=== PATIENT | female | born 1995 | race Caucasian/White ===

== ENCOUNTER 2017-04-28 16:49 | Emergency (ER) | payer OTHER ==
[~2017-04-28] VITALS: Ht 162.6 cm; Wt 78.0 kg
[~2017-04-28 16:49] MED LIST: ACET1TAB40 PO; FAMO-96 PO; HYDR-3498 PO; INSU100I28 SQ; INSU100V18; LORA-408 PO; ONDA4TAB8 PO; TRAM50TA2 PO
[2017-04-28 16:51] VITALS: Ht 162.6 cm; Wt 78.0 kg
[2017-04-28 19:31] LABS: ADD UMIC YES; UR ASCORBIC ACID NEGATIVE (NEGATIVE); UR BILIRUBIN (Dip) NEGATIVE (NEGATIVE); UR BLOOD (Dip) 3+ mg/dL (NEGATIVE); UR CLARITY SLIGHTLY CLOUDY (CLEAR); UR COLOR YELLOW (YELLOW); UR GLUCOSE (Dip) 3+ mg/dL (NEGATIVE); UR KETONES (Dip) TRACE mg/dL (NEGATIVE); UR LEUKOCYTE ESTERASE (Dip) NEGATIVE Leu/ul (NEGATIVE); UR NITRITE (Dip) NEGATIVE (NEGATIVE); UR RBC > 182 /HPF (0-5); UR SPECIFIC GRAVITY (Dip) 1.022 (1.003-1.030); UR TOTAL PROTEIN (Dip) NEGATIVE (NEGATIVE); UR UROBILINOGEN (Dip) NEGATIVE (NEGATIVE)
[2017-04-28 20:18] LABS: BASOPHILS % 0.3 % (0.0-2.0); EOSINOPHILS # 0.1 10^3/ul (0.0-0.5); HEMATOCRIT 32.1 % (37.0-47.0); HEMOGLOBIN 10.3 g/dl (12.0-16.0); LYMPHOCYTES % 25.5 % (15.0-51.0); MEAN CORPUSCULAR HEMOGLOBIN 27.1 pg (29.0-33.0); MEAN CORPUSCULAR HGB CONC 32.1 g/dl (32.0-37.0); MEAN CORPUSCULAR VOLUME 84.5 fl (82.0-101.0); MEAN PLATELET VOLUME 10.8 fl (7.4-10.4); MONOCYTE # 0.4 10^3/ul (0.3-0.9); MONOCYTES % 3.1 % (0.0-11.0); NEUTROPHIL # 8.1 10^3/ul (1.6-7.5); NEUTROPHILS % 69.6 % (39.0-77.0); PLATELET COUNT 312 10^3/UL (140-415); RED CELL DISTRIBUTION WIDTH 14.3 % (11.5-14.5); WHITE BLOOD COUNT 11.7 10^3/ul (4.8-10.8)
--- NOTE | 2017-04-28 20:18 | RADRPT ---
PROCEDURE: US Pelvis. CLINICAL INDICATION: Pelvic pain TECHNIQUE: Multiple sonographic images of the pelvis were obtained utilizing a transabdominal and endovaginal technique. The images were reviewed on a PACS workstation. COMPARISON: None. FINDINGS: The uterus is visualized and measures 3.7 x 3.9 x 6.2 cm. The endometrial echo complex is slightly t hickened and measures 15.2 mm . There is a trace amount of fluid within the inferior endometrial can al. The right ovary measures 1.3 x 1.5 x 2.1 cm The left ovary measures 1.2 x 1.3 x 2.3 cm. There is normal vascular flow to both ovaries. There is a small amount of free fluid in the right adnexa. IMPRESSION: 1. The endometrial echo complex is slightly thickened measuring 15.2 mm. There is a trace amount o f fluid within the inferior endometrial canal. 2. Both ovaries are normal in appearance with normal vascular flow. 3. There is a small amount of free fluid in the right adnexa. RPTAT:AAJJ Physician Dixon Date Time Electronically viewed and signed by Physician Dixon on 04/28/2017 20:17 /
[2017-04-28 20:21] LABS: ALBUMIN 4.2 g/dl (3.3-4.9); ALBUMIN/GLOBULIN RATIO 1.31; BILIRUBIN,INDIRECT 0.1 mg/dl (0-1.1); BILIRUBIN,TOTAL 0.1 mg/dl (0.2-1.3); CALCIUM 8.9 mg/dl (8.4-10.2); CREATININE 0.84 mg/dl (0.44-1.00); POTASSIUM 5.2 mmol/L (3.5-5.1); TOTAL PROTEIN 7.4 g/dl (6.1-8.1)
[2017-04-28] MEDS ORDERED: IBUPROFEN 600 MG TAB PO STA (20:37)
[2017-04-28] MEDS ORDERED: SOD CHLORIDE 0.9% 1,000 ML IV STA ×2 (20:38→20:39)
[2017-04-28] MEDS ORDERED: KETOROLAC 15 MG INJ IV STA (20:39)
[2017-04-28] MEDS ORDERED: morphine 10 MG INJ IV ONE (21:00)
--- NOTE | 2017-04-29 01:03 | ERD ---
ER Documentation Chief Complaint Date/Time DATE: 04/29/17 TIME: 00:53 Chief Complaint vaginal bleeding x 2 mos HPI 22-year-old female with a history of bipolar disorder, insulin-dependent diabetes type 1 who comes from a [facility] presents to the emergency department complaining of vaginal bleeding for the past 2 months. Patient states that she uses 6 pads per day. Patient has a history of irregular menstrual periods. She denies any pelvic pain. She denies any nausea, vomiting , diarrhea. Patient is a poor historian and uncooperative with answering questions, patient states that she took insulin at home and is due for her next insulin shot ROS All systems reviewed and are negative except as per history of present illness. Medications Home Meds Active Scripts Tramadol HCl (Tramadol HCl) 50 Mg Tablet, 50 MG PO Q4 Y for PAIN, #20 TAB Prov:DINO SIEGEL NP 06/07/16 Ondansetron Hcl* (Zofran*) 4 Mg Tablet, 4 MG PO Q6H for NAUSEA AND/OR VOMITING, #30 TAB Prov:DINO SIEGEL NP 06/07/16 Famotidine* (Pepcid*) 20 Mg Tablet, 20 MG PO BID for 30 Days, TAB Prov:VIVIAN FONTANA PA-C 01/05/16 Hydrocodone Bit-Acetaminophen* ([place]*) 5-325 Mg Tab, 1 TAB PO Q6 Y for PAIN, # 10 TAB Prov:VIVIAN FONTANA PA-C 01/05/16 Acetaminophen-Codeine* (Acetaminophen-Cod #3*) 300-30 Mg Tab, 2 TAB PO Q4H Y for PAIN, #15 TAB Prov:RNIKU BRITO NP 10/10/15 Reported Medications Insulin Lispro (Humalog) 100 U/Ml Vial, 0 Refills 06/13/12 Insulin Detemir* (Levemir*) 100 U/Ml Insuln.pen, 48 UNIT SQ AM/PM 06/13/12 Lorazepam (Ativan) 1 Mg Tablet, 1 MG PO QID Y, 0 Refills 06/12/12 Allergies Allergies: Coded Allergies: Penicillins (Verified Allergy, Severe, 10/10/15) Insulin Glargine,Hum.Rec.Anlog (Verified Allergy, Unknown, 10/10/15) amoxicillin (Verified Allergy, Unknown, 10/10/15) fish derived (Verified Allergy, Unknown, 10/10/15) mirtazapine (Verified Allergy, Unknown, 10/10/15) Uncoded Allergies: FISH (Allergy, Unknown, 12/25/13) PMhx/Soc History of Surgery: Yes (ovarian cyst) Anesthesia Reaction: No Hx Neurological Disorder: No Hx Respiratory Disorders: No Hx Cardiac Disorders: No Hx Psychiatric Problems: No Hx Miscellaneous Medical Probl: Yes (fibro myalgia, [employer]SULTANT SHUNT.) Hx Alcohol Use: No Hx Substance Use: No Hx Tobacco Use: No Smoking Status: Never smoker Physical Exam Vitals Vital Signs Date Time Temp Pulse Resp B/P Pulse Ox O2 Delivery O2 Flow Rate FiO2 04/28/17 16:51 99.0 100 20 108/60 99 Physical Exam Const: obese Head: Atraumatic Eyes: Normal Conjunctiva ENT: Normal External Ears, Nose and Mouth. Neck: Full range of motion..~ No meningismus. Resp: Clear to auscultation bilaterally Cardio: Regular rate and rhythm, no murmurs Abd: Soft, non tender, non distended. Normal bowel sounds Skin: No petechiae or rashes Back: No midline or flank tenderness Ext: No cyanosis, or edema Neur: Awake and alert Psych: flat affect Result Diagram: 04/28/17195404/28/171954 Results 24 hrs Laboratory Tests Test 04/28/17 19:00 04/28/17 19:55 Urine Color YELLOW Urine Clarity SLIGHTLY CLOUDY Urine pH 7.0 Urine Specific [place] 1.022 Urine Ketones TRACEmg/dL Urine Nitrite NEGATIVEmg/dL Urine Bilirubin NEGATIVEmg/dL Urine Urobilinogen NEGATIVEmg/dL Urine Leukocyte Esterase NEGATIVELeu/ul Urine Microscopic RBC > 182/HPF Urine Microscopic WBC 0/HPF Urine Hemoglobin 3+mg/dL Urine Glucose 3+mg/dL Urine Total Protein NEGATIVEmg/dl White Blood Count 11.710^3/ul Red Blood Count 3.8010^6/ul Hemoglobin 10.3g/dl Hematocrit 32.1% Mean Corpuscular Volume 84.5fl Mean Corpuscular Hemoglobin 27.1pg Mean Corpuscular Hemoglobin Concent 32.1g/dl Red Cell Distribution Width 14.3% Platelet Count 11634^3/UL Mean Platelet Volume 10.8fl Neutrophils % 69.6% Lymphocytes % 25.5% Monocytes % 3.1% Eosinophils % 1.0% Basophils % 0.3% Nucleated Red Blood Cells % 0.0/100WBC Neutrophils # 8.110^3/ul Lymphocytes # 3.010^3/ul Monocytes # 0.410^3/ul Eosinophils # 0.110^3/ul Basophils # 0.010^3/ul Nucleated Red Blood Cells # 0.010^3/ul Sodium Level 138mmol/L Potassium Level 5.2mmol/L Chloride Level 101mmol/L Carbon Dioxide Level 21mmol/L Anion Gap 21 Blood Urea Nitrogen 11mg/dl Creatinine 0.84mg/dl Glucose Level 537mg/dl Calcium Level 8.9mg/dl Total Bilirubin 0.1mg/dl Direct Bilirubin 0.00mg/dl Indirect Bilirubin 0.1mg/dl Aspartate Amino Transf (AST/SGOT) 12IU/L Alanine Aminotransferase (ALT/SGPT) 27IU/L Alkaline Phosphatase 144IU/L Total Protein 7.4g/dl Albumin 4.2g/dl Globulin 3.20g/dl Albumin/Globulin Ratio 1.31 Current Medications Medications (Trade) Dose Ordered Sig/[place] Route PRN Reason Start Time Stop Time Status Last Admin Dose Admin Ibuprofen 600 mg 600 mg ONCE STAT PO 04/28/17 20:37 04/28/17 20:40 DC Sodium Chloride (NS) 1,000 ml @ 1,000 mls/hr Q1H STAT IV 04/28/17 20:38 04/28/17 21:19 DC 04/28/17 20:49 Ketorolac Tromethamine 15 mg 15 mg ONCE STAT IV 04/28/17 20:39 04/28/17 20:40 DC 04/28/17 20:51 Sodium Chloride (NS) 1,000 ml @ 1,000 mls/hr Q1H STAT IV 04/28/17 20:39 04/28/17 21:19 DC Morphine Sulfate (morphine) 6 mg ONCE ONCE IV 04/28/17 21:00 04/28/17 21:01 DC Procedures/MDM 21-year-old female with history of insulin-dependent diabetes, bipolar disorder , and irregular menses presents complaining of vaginal bleeding for the past 2 months. Patient did have evidence of anemia however not significant enough to get transfused. hemoglobin of 10.3, pelvic ultrasound unremarkable. Patient was found to have hyperglycemia of 537 without evidence of DKA or hyperosmolar state, Patient was in the process of receiving fluids and insulin however patient was very unpleasant to staff requesting pain medication, I have given her morphine but patient states she wants to go home. I have discussed the risks of and complications of hyperglycemia however patient still signed AGAINST MEDICAL ADVICE Pelvic ultrasound 1. The endometrial echo complex is slightly thickened measuring 15.2 mm. There is a trace amount of fluid within the inferior endometrial canal. 2. Both ovaries are normal in appearance with normal vascular flow. 3. There is a small amount of free fluid in the right adnexa. Departure Diagnosis: Primary Impression: Left against medical advice Condition: LISET Guadalupe PA-C Apr 29, 2017 01:03
== END 2017-04-28 21:00 | disposition left against medical advice (07) ==
LOC: FTE 16:49
DX: N93.9 Abnormal uterine and vaginal bleeding, unspecified (principal); E10.9 Type 1 diabetes mellitus without complications; Z79.4 Long term (current) use of insulin
CPT/HCPCS: 76830; 76856; 80053; 81001; 85025; 86850; 86900; 86901; 96374; J1885; J7030; Z7502

== ENCOUNTER 2018-05-20 02:35 | Emergency (ER) | END 2018-05-20 11:07 | disposition home or self-care (01) ==

== ENCOUNTER 2018-09-26 11:05 | Emergency (ER) | payer OTHER ==
[2017-04-28 16:51] VITALS: BMI 29.5
[~2018-09-26 11:05] MED LIST changes: +INSU100I33 SC; +PEG1POWD PO; +POLY17PO6 PO
[2018-09-26] MEDS ORDERED: HYDROCODONE/APAP (10/325) TAB PO ONE (11:30)
[2018-09-26 12:00] VITALS: BP 130/78; PULSE 59; RESP 17
--- NOTE | 2018-09-26 13:42 | ERD ---
ER Documentation Chief Complaint Chief Complaint Pain HPI Patient is a 23-year-old female with a history of brain cancer, diabetes, and hypertension who presents saying that she is having "so much pain". She was brought in by ambulance. She said that she might be having methadone withdrawal. The patient said that she usually takes methadone 3 times per day but that she has been out of her methadone for the past 3 weeks. She said that she cannot sleep or eat and that her blood pressure is high. She is having whole body pain. She tried Tylenol and ibuprofen and tried to call her pain management doctor but said that the doctor was not answering her calls. She does not remember the name of her pain management doctor or her primary doctor. Upon review of old medical records the patient has multiple visits to the ER for various complaints including multiple pain complaints. Upon review of the emergency department information exchange system the visit has visits to 2 separate emergency departments. ROS All systems reviewed and are negative except as per history of present illness. Medications Home Meds Active Scripts Polyethylene Glycol* (Miralax*) 17 Gm Powd.pack, 17 GM PO DAILY, #7 Prov:EMILIANA HARDY DO 05/20/18 Peg 3350/Na Sulf,Bicarb,Cl/KCl (Golytely Packet) 1 Each Powd.pack, 1 EACH PO DAILY for constipation, #4 Prov:EMILIANA HARDY DO 05/20/18 Tramadol HCl (Tramadol HCl) 50 Mg Tablet, 50 MG PO Q4 PRN for PAIN, #20 TAB Prov:DINO SIEGEL NP 06/07/16 Ondansetron Hcl* (Zofran*) 4 Mg Tablet, 4 MG PO Q6H for NAUSEA AND/OR VOMITING, #30 TAB Prov:DINO SIEGEL NP 06/07/16 Famotidine* (Pepcid*) 20 Mg Tablet, 20 MG PO BID for 30 Days, TAB Prov:VIVIAN FONTANA PA-C 01/05/16 Hydrocodone Bit-Acetaminophen* ([place]*) 5-325 Mg Tab, 1 TAB PO Q6 PRN for PAIN, #10 TAB Prov:VIVIAN FONTANA PA-C 01/05/16 Acetaminophen-Codeine* (Acetaminophen-Cod #3*) 300-30 Mg Tab, 2 TAB PO Q4H PRN for PAIN, #15 TAB Prov:RINKU BRITO ROUSTABOUT HAND 10/10/15 Reported Medications Insulin Glargine,Hum.rec.anlog (Basaglar Kwikpen U-100) 100 Unit/1 Ml Insuln.pen, 90 UNIT SC BID, EA 05/20/18 Insulin Detemir* (Levemir*) 100 U/Ml Insuln.pen, 48 UNIT SQ AM/PM 06/13/12 Lorazepam (Ativan) 1 Mg Tablet, 1 MG PO QID PRN, 0 Refills 06/12/12 Discontinued Reported Medications Insulin Lispro (Humalog) 100 U/Ml Vial, 0 Refills 06/13/12 Allergies Allergies: Coded Allergies: Penicillins (Unverified Allergy, Severe, 05/20/18) Insulin Glargine,Hum.Rec.Anlog (Unverified Allergy, Unknown, 05/20/18) amoxicillin (Unverified Allergy, Unknown, 05/20/18) fish derived (Verified Allergy, Unknown, 10/10/15) mirtazapine (Unverified Allergy, Unknown, 05/20/18) Uncoded Allergies: FISH (Allergy, Unknown, 12/25/13) PMhx/Soc History of Surgery: Yes (ovarian cyst, MULTIPLE BRAIN SX) Anesthesia Reaction: No Hx Neurological Disorder: No Hx Respiratory Disorders: No Hx Cardiac Disorders: No Hx Psychiatric Problems: No Hx Miscellaneous Medical Probl: Yes (fibro myalgia, [employer] WORK[employer] SHUNT. HX BRAIN CA, DM1, DROP FOOT) Hx Alcohol Use: No Hx Substance Use: No Hx Tobacco Use: No Smoking Status: Never smoker FmHx Family History: No diabetes Physical Exam Vitals Vital Signs Date Temp Pulse Resp B/P (MAP) Pulse Ox O2 O2 Flow FiO2 Time Delivery Rate 09/26/18 59 17 130/78 100 Room Air 12:00 (95) Physical Exam Const: Mild distress secondary to pain Head: Atraumatic Eyes: Normal Conjunctiva ENT: Normal External Ears, Nose and Mouth. Neck: Full range of motion. No meningismus. Resp: Clear to auscultation bilaterally Cardio: Regular rate and rhythm, no murmurs Abd: Soft, non tender, non distended. Normal bowel sounds Skin: No petechiae or rashes Back: No midline or flank tenderness Ext: No cyanosis, or edema Neur: Awake and alert Psych: Normal Mood and Affect Results 24 hrs Current Medications Medications Dose Sig/[place] Start Time Status Last (Trade) Ordered Route PRN Stop Time Admin Dose Reason Admin 1 tab ONCE ONCE 09/26/18 DC 09/26/18 Acetaminophen PO 11:30 09/26/18 11:23 / 11:31 Hydrocodone Bitart ([place] ()) Procedures/MDM Patient is a 23-year-old female who presents with acute on chronic pain. This appears to be an exacerbation of her chronic pain syndrome which she takes methadone for. I told her that per our policy at [facility] we will not give her IV or IM narcotics and she will not get a prescription for narcotics. She was given 1 dose of [place] in the emergency department and will be discharged. She will need to follow-up with her pain management doctor for any further pain medication. She can return for any worsening symptoms. Departure Diagnosis: Primary Impression: Chronic pain Chronic pain type: chronic pain syndrome Qualified Codes: G89.4 - Chronic pain syndrome Condition: Fair Patient Instructions: Chronic Pain Referrals: Your pain management doctor Additional Instructions: SPECIALIST: YOU HAVE A MEDICAL CONDITION WHICH REQUIRES YOU TO SEE A SPECIALIST WITHIN THE NEXT 1-2 DAYS. PLEASE FOLLOW UP WITH YOUR PRIMARY PHYSICIAN FOR REFFERAL.IF YOU DO NOT HAVE A PRIMARY CARE PHYSICIAN AND/OR YOU CAN NOT AFFORD TO SEE A PHYSICIAN THE FOLLOWING RESOURCES HAVE BEEN SUPPLIED TO YOU. IT IS YOUR RESPONSIBILITY TO BE SEEN BY THE SPECIALIST EDIN CEJA MD Sep 26, 2018 13:42
== END 2018-09-26 12:00 | disposition home or self-care (01) ==
LOC: E/R 11:05
DX: G89.4 Chronic pain syndrome (principal); E10.9 Type 1 diabetes mellitus without complications; I10 Essential (primary) hypertension; Z79.4 Long term (current) use of insulin; Z85.841 Personal history of malignant neoplasm of brain
CPT/HCPCS: Z7502; Z7610; 99283

== ENCOUNTER 2019-05-19 12:41 | Emergency (ER) | payer MEDICARE, OTHER ==
[~2019-05-19] VITALS: Ht 160 cm; Wt 80.0 kg
[~2019-05-19 12:41] MED LIST changes: -INSU100V18; +SULF1TAB31 PO
[2019-05-19 12:57] VITALS: Ht 160 cm; Wt 80.0 kg
[2019-05-19] MEDS ORDERED: LORAZEPAM 2 MG INJ IM ONE (13:00)
[2019-05-19] MEDS ORDERED: HALOPERIDOL 5 MG INJ IM ONE (13:00)
[2019-05-19] MEDS ORDERED: SOD CHLORIDE 0.9% 1,000 ML IV STA ×2 (16:51)
[2019-05-20] MEDS ORDERED: HYDROCODONE/APAP (5/325) TAB PO ONE (00:30)
[2019-05-20] MEDS ORDERED: TRIMETHOPRIM/SULFAMETHOX (DS) TAB PO ONE (00:30)
[2019-05-20] MEDS ORDERED: ONDANSETRON (ODT) 4 MG TAB ODT STA ×2 (00:46→07:41)
[2019-05-20] MEDS ORDERED: INSULIN GLARGINE [LANTus] (100 UNITS/ML) SYG SC SCH (08:00)
[2019-05-20] MEDS ORDERED: LORAZEPAM 0.5 MG TAB PO ONE (08:30)
[2019-05-20] MEDS ORDERED: TRIMETHOPRIM/SULFAMETHOX (DS) TAB PO SCH (09:00)
[2019-05-20] MEDS ORDERED: IBUPROFEN 800 MG TAB PO ONE (16:00)
[2019-05-20 16:51] VITALS: BP 104/72; PULSE 108; RESP 18
== END 2019-05-20 17:05 | disposition home or self-care (01) ==
LOC: E/R 12:41
DX: R45.851 Suicidal ideations (principal); E10.9 Type 1 diabetes mellitus without complications; Z79.4 Long term (current) use of insulin; Z85.841 Personal history of malignant neoplasm of brain
CPT/HCPCS: 70450; 71045; 80053; 80307; 81001; 81003; 82962; 84703; 85025; 96372; 99285; J1630; J1815; J2060; J7030